=== PATIENT | male | born 1975 | race Asian ===

== ENCOUNTER 2022-07-24 10:10 | Emergency (ER) | payer OTHER, SELFPAY ==
[2022-07-24 10:18] VITALS: BP 138/95; PULSE 82; RESP 16; TEMP 35.8; O2SAT 100
--- NOTE | 2022-07-24 10:21 | ED.URI ---
HPI - URI/Sore Throat General Chief Complaint: Upper Respiratory Infection Stated Complaint: cold/flu Time Seen by Provider: 07/24/22 10:21 Source: patient and RN notes reviewed History of Present Illness HPI Narrative: Patient is a 46-year-old male who presents to urgent care with complaints of cold/flu like symptoms of fatigue, headache around the right eye and nasal congestion. Patient states that it started 2 days ago and he had a fever of 102 F yesterday. Patient states that he took ibuprofen and and the pain did subside. Patient states that he woke up today and felt fine, went to work and then developed the headache and pressure to the right side of the nose and into the right eye again. Patient has not taking anything today for his symptoms. Denies of cough, known fever, nausea or vomiting. No other acute complaints. No acute distress noted. Patient aware of the plan care. Some parts of this dictation were generated by voice recognition software and may contain typographical and/or grammatical inaccuracies. Related Data Home Medications Medication Instructions Recorded Confirmed No Home Medications 07/24/22 07/24/22 Allergies Allergy/AdvReac Type Severity Reaction Status Date / Time No Known Allergies Allergy Verified 09/04/19 09:12 Review of Systems Review of Systems: CONSTITUTIONAL: Denies fever, chills, or sweats. EYES: Denies visual changes, redness, or discharge. ENT: Reports of sinus congestion on the right CARDIOVASCULAR: Denies chest pain, palpitations, or edema. RESPIRATORY: Denies cough or dyspnea. GASTROINTESTINAL: Denies abdominal pain, nausea, vomiting, or diarrhea. GENITOURINARY: Denies dysuria or hematuria. SKIN: Denies rash or itching. MUSCULOSKELETAL: Denies back pain, joint pain, or myalgia. NEUROLOGIC: Reports of a headache All other systems reviewed are negative, except as documented in HPI. [facility] Past Medical History Medical History (Updated 07/24/22 @ 10:55 by VENKAT Parikh) No pertinent past medical history Surgical History Surgical History History of appendectomy 08/13/19 Social History Social History Social History: The patient lives at home alone. 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 Smoking status: Never smoker Alcohol intake: never Substance use: never Gender identity (if verbalized by the patient): Male Spiritual care concerns: No Agree to blood products: Yes Comments At the time of my signature, I reviewed and agree with the nursing past medical, surgical, social, and family history. There is no relevant family history pertinent to the patient complaint. Exam Narrative: GENERAL: This is a well-nourished, well-developed patient, in no apparent distress. HEAD: normocephalic, atraumatic. Frontal sinus tenderness EYES: PERRL. Sclera clear/white. Vision is grossly intact. EARS: External ears normal, auditory canals clear and without drainage, TMs normal without perforation. Hearing grossly intact. NOSE: External nose normal with no obvious nasal discharge, nares without redness, clear rhinorrhea. THROAT: Mucous membranes moist, posterior pharynx clear. Mild postnasal drainage NECK: Neck supple, non-tender without lymphadenopathy, masses or thyromegaly. CARDIOVASCULAR: Regular rate and rhythm without murmurs, gallops, or rubs. RESPIRATORY: Clear to auscultation. Breath sounds equal bilaterally. No wheezes, rales, or rhonchi. SKIN: warm, intact with no suspicious lesions or rash, good texture and turgor. NEURO: awake, alert, and oriented to person, place and time. There were no obvious focal neurologic abnormalities. EXTREMITIES: No clubbing, cyanosis, or edema. Course Course Level of Care: Express Care Visit Vital Signs Vital signs: Vital Signs Temperature 96.4 F L 07/24/22 10:18 Pulse Rate 82 07/24/22 10:18 Respiratory R
== END 2022-07-24 11:01 | disposition home or self-care (01) ==
PROVIDERS: Emergency Provider Nurse Practitioner Family
DX: J32.9 Chronic sinusitis, unspecified (principal)
CPT/HCPCS: 99211; 99213; G0463